=== PATIENT | male | born 1995 | race Caucasian/White ===

== ENCOUNTER 2019-09-08 08:40 | Emergency (ER) | payer BC ==
[~2019-09-08] VITALS: Ht 180.3 cm; Wt 65.3 kg
[2019-09-08 08:44] VITALS: BP 134/71; Ht 180.3 cm; Wt 65.3 kg
== END 2019-09-08 09:11 | disposition home or self-care (01) ==
LOC: ED 08:40
DX: S61.210A Laceration without foreign body of right index finger without damage to nail, initial encounter (principal); W22.8XXA Striking against or struck by other objects, initial encounter; Y93.89 Activity, other specified; Y92.89 Other specified places as the place of occurrence of the external cause; Y99.8 Other external cause status